=== PATIENT | female | born 2000 | race Caucasian/White ===

== ENCOUNTER 2020-02-15 09:18 | Outpatient (CLI) | payer OTHER, SELFPAY ==
[2020-02-16 14:04] LABS: SARS-CoV-2 RNA PCR Negative
== END 2020-02-15 09:19 | disposition home or self-care (01) ==
LOC: CHSLAB 09:26
PROVIDERS: PCP Family Medicine; Visit Provider Physician Assistant
DX: Z20.828 Contact with and (suspected) exposure to other viral communicable diseases (principal)
CPT/HCPCS: 87635; C9803; U0003